=== PATIENT | female | born 1990 | race Caucasian/White ===

== ENCOUNTER 2017-01-03 16:15 | Emergency (ER) | payer OTHER ==
[~2017-01-03] VITALS: Ht 165.1 cm; Wt 67.0 kg
[2017-01-03 16:20] VITALS: BP 127/87; PULSE 89; TEMP 36.7; O2SAT 98; Ht 165.1 cm; Wt 67.0 kg
[2017-01-03] MEDS ORDERED: LIDOCAINE/EPINEPHRINE 1% 20 ML VIAL INFIL ONE (16:45)
[2017-01-03] MEDS ORDERED: GELATIN SPONGE 12-7MM EXT ONE (17:00)
[2017-01-03] MEDS ORDERED: CETI10TA84 PO (17:12)
[2017-01-03] MEDS ORDERED: DIPH1TAB87 PO (17:12)
--- NOTE | 2017-01-03 17:18 | EMERGENCY ROOM VISIT NOTE ---
ED Visit Note First contact with patient: 16:23 CHIEF COMPLAINT: Finger laceration HISTORY OF PRESENT ILLNESS: This 26-year-old female patient presents to the emergency department with her coworker after cutting the tip of her right index finger about an hour ago she was at work. Patient is a agency service representative, states she was picking up a glass when it broke and sliced the tip of her finger. The bleeding has not stopped and has been bleeding a lot. Denies weakness or numbness of the finger. The patient rates the pain as throbbing, sharp and 6/ 10. The patient denies any other injuries. The patient's Tetanus shot is up to date. REVIEW OF SYSTEMS: A 6 system review of systems was completed with positives and pertinent negatives listed in the HPI. ALLERGIES: None MEDICATIONS: See chart PMH: See chart SOCIAL HISTORY: Denies tobacco, alcohol, recreational drugs. PHYSICAL EXAM: Vital Signs: Reviewed Nurse's notes, vital signs stable. GENERAL : Alert and pleasant, in no acute distress, well-developed, well-nourished. SKIN: There is a 1.5 cm long by 1 cm wide avulsion laceration on the volar aspect of the right second finger pad, with exposed subcutaneous tissue. The edges are unable to be approximated due to tissue loss. There is no foreign material in the wound and it looks clean. There is active brisk bleeding with removal of pressure, with tiny pulsating stream of blood from the wound. No deep structures such as tendons, bones, or significant blood vessels are seen in the base of the wound. Normal strength and movement of the hand and fingers. Capillary refill less than 2 seconds. Normal sensation to light and sharp touch. EMERGENCY DEPARTMENT COURSE: I examined the patient. Verbal consent was obtained to perform the procedure. A tourniquet was applied to the finger for no more than 20 minutes to control bleeding and allow for proper visualization of the wound. Using sterile technique the wound was cleansed with Betadine. The area was sterilely draped. 1 ml of 1% buffered lidocaine with epinephrine was used to locally anesthetize the laceration on the volar aspect. Once the patient was anesthetized, the wound was copiously irrigated under pressure with sterile saline. The wound was explored and was as described above. The laceration was repaired using 4 simple interrupted 5-0 nylon sutures with the wound edges brought together with tension, but unable to fully approximate the edges. The patient tolerated the procedure well. After the wound was closed, the tourniquet was removed and hemostasis was achieved. The area was cleaned with sterile saline and dressed with bacitracin ointment and bandage with Gelfoam and sterile gauze. The patient was instructed on wound care, and follow -up plans for return to the ER for reevaluation in 3 days were discussed, as patient does not have a PCP. Patient verbalized understanding. The patient was discharged home in good condition. DIAGNOSIS: [] laceration DISCHARGE INSTRUCTIONS & TREATMENT: Keep wound clean and dry. Do not allow any crusting or dried blood to accumulate on sutures. If this occurs, use a 1:1 solution of hydrogen peroxide/water on a Q-tip to clean the wound. Use an antibiotic ointment for 3-4 days, then let wound dry. Suture removal in 10-12 days. Return sooner for any signs of infection (increasing redness, swelling, drainage). Ice and elevate for swelling and pain. Ibuprofen 600 mg and Tylenol 1000 mg every 6 hrs for pain. Keep covered when in sun until sutures removed then SPF 50 or higher for one year. Vitamin E oil if desired two weeks after suture removal for reduction of scar. Current/Historical Medications Scheduled PRN Cetirizine (Zyrtec), 10 MG PO DAILY PRN for ALLERGIC REACTION Diphenhydramine Hcl (Benadryl Allergy), 50 MG PO DAILY PRN for ALLERGIC REACTION Allergies Coded Allergies: No Known Allergies (Unverified , 01/03/17) Vital Signs Date Time Temp Pulse Resp B/P Pulse Ox O2 Delivery O2 Flow Rate FiO2 01/03/17 16:20 36.7 89 20 127/87 98 Room Air Medications Administered Medications (Trade) Dose Ordered Sig/Charly Route Start Time Stop Time Status Last Admin Dose Admin Gelatin (Surgifoam Sponge 12-7MM (SMALL)) 1 ea NOW ONCE EXT 01/03/17 17:00 01/03/17 17:01 DC 01/03/17 17:00 1 EA Departure Information Impression Primary Impression: Avulsion of skin of finger without complication Dispostion Home / Self-Care Condition GOOD Referrals No Doctor, Assigned (PCP) Patient Instructions [facility] Additional Instructions Keep the dressing in place for the next 24 hours. After that you may remove the dressing and clean the wound with water and soap only. He may apply antibiotic ointment and a clean dressing to the wound after wash the wound. Watch for any signs of infection, including redness, increased swelling, pus drainage, streaking up the hand, fever/chills. You should be evaluated immediately for any signs of infection. Ibuprofen 600 mg and/or Tylenol 1000 mg every 6-8 hrs for pain. Please return to the ER on Wednesday, 01/06, between the hours of 11 AM and 7 PM to have your wound reassessed. When you check in, you may ask for JOSE F Harman. Problem Qualifiers Primary Impression: Avulsion of skin of finger without complication Encounter type: initial encounter Qualified Codes: S61.209A - Unspecified open wound of unspecified finger without damage to nail, initial encounter
== END 2017-01-03 17:36 | disposition home or self-care (01) ==
LOC: C.EDB 16:17 → C.EDD 17:36
DX: S61.209A Unspecified open wound of unspecified finger without damage to nail, initial encounter (principal); W45.8XXA Other foreign body or object entering through skin, initial encounter

== ENCOUNTER 2017-01-06 12:49 | Emergency (ER) | payer OTHER ==
[~2017-01-06] VITALS: Ht 165.1 cm; Wt 65.6 kg
[~2017-01-06 12:49] MED LIST: CETI10TA84 PO; DIPH1TAB87 PO
[2017-01-06 12:53] VITALS: TEMP 36.7; Ht 165.1 cm; Wt 65.6 kg
--- NOTE | 2017-01-06 13:46 | EMERGENCY ROOM VISIT NOTE ---
ED Visit Note First contact with patient: 13:25 CHIEF COMPLAINT: Suture removal This patient returns to the ED today for removal of sutures that were placed 3 days ago. There has been no swelling, redness, or drainage from the wound. The patient feels like the laceration is healing well. Bleeding is controlled. REVIEW OF SYSTEMS: Head: No headache, injury or neck pain. Skin: No rash, new lesions, or masses. General: No fever or chills, fatigue, loss of appetite , or significant recent weight gain or loss. PMH: The patient is healthy; there is no significant medical or surgical history. SOCIAL HISTORY: Patient lives at home. PHYSICAL EXAM: Vital Signs: Reviewed Nurse's notes. There is a sutured wound on the right second finger with no signs of infection. There is no erythema, swelling, or tenderness. EMERGENCY DEPARTMENT COURSE: The sutures were removed without any difficulty. There is granulation tissue in the wound base and appears to be healing well. Pt instructed to continue wound dressing changes with gel foam and follow up with PCP. Continue monitoring for any signs of infection. DIAGNOSIS: Healing laceration and suture removal Current/Historical Medications Scheduled PRN Cetirizine (Zyrtec), 10 MG PO DAILY PRN for ALLERGIC REACTION Diphenhydramine Hcl (Benadryl Allergy), 50 MG PO DAILY PRN for ALLERGIC REACTION Allergies Coded Allergies: No Known Allergies (Unverified , 01/03/17) Vital Signs Date Time Temp Pulse Resp B/P Pulse Ox O2 Delivery O2 Flow Rate FiO2 01/06/17 13:53 68 18 168/64 99 Room Air 01/06/17 12:53 36.7 76 18 121/80 95 Room Air Departure Information Impression Primary Impression: Encounter for removal of sutures Additional Impression: Avulsion of skin of finger without complication Dispostion Home / Self-Care Condition GOOD Referrals No Doctor, Assigned (PCP) Patient Instructions ED Wound Care, [facility] Additional Instructions You have had the sutures removed from your finger. The wound is not fully healed and will need to continue having daily dressing changes for the next 7- 10 days. Change the dressing once a day as directed. Proper wound care is essential for adequate wound healing and infection prevention. You can shower and clean the wound with soap and water. Do not scour over the wound, pat dry with a towel. Do not submerse the wound (i.e. bathe or dish wash) until the the skin has fully healed and is no longer open or rale. You can use an antibiotic ointment with a small piece of the foam gel, and wrapped with a dressing. After about 7 days, you may leave the wound dry and open to the air. If crust develops over the wound you can use a Q-tip to apply a 1:1 peroxide:water solution to clean the wound. Look for signs of infection of the wound including: increased pain, swelling, foul discharge, streaking, or increased temperature. If any of these are noticed you should return to the Emergency Department for further assessment and treatment. As with any laceration you may have received nerve damage to the surrounding tissues. This damage may or may not be permanent. You should keep the area covered with sunscreen for the first 6 months to 1 year when at risk for exposure to help minimize scarring. You can also use scar reducing creams or Vitamin E oil to help minimize scarring. For pain control, you can use the following [id number] medicines (if >12 yo): -Extra strength (500 mg/tab) Tylenol (acetaminophen) 2 tabs every 8 hours as needed. Do not exceed 6 tablets in a 24 hour period. Avoid taking more than 3 grams (3000 mg) of Tylenol per day. This includes any other sources of acetaminophen you may take on a regular basis. - Regular strength (200 mg/tab) Advil (ibuprofen) 1-2 tabs every 4-6 hours as needed. Do not exceed a dose of 3200 mg per day. Return to the emergency department if your symptoms worsen despite treatment course outlined above. Problem Qualifiers Additional Impression: Avulsion of skin of finger without complication Encounter type: subsequent encounter Qualified Codes: S61.209D - Unspecified open wound of unspecified finger without damage to nail, subsequent encounter
[2017-01-06 13:53] VITALS: BP 168/64; PULSE 68; O2SAT 99
== END 2017-01-06 13:55 | disposition home or self-care (01) ==
LOC: C.EDB 12:50 → C.EDD 13:55
DX: Z48.02 Encounter for removal of sutures (principal)